=== PATIENT | male | born 1965 | race Two or more races ===

== ENCOUNTER 2018-01-12 14:12 | Emergency (ER) | payer OTHER ==
[~2018-01-12] VITALS: Ht 167.6 cm; Wt 77.1 kg
[2018-01-12 14:23] VITALS: BP_SYST 118
--- NOTE | 2018-01-12 14:27 | NUR ---
Ambulatory to bed 6
--- NOTE | 2018-01-12 14:29 | NUR ---
ER Dr. Zavaleta at bedside examining patient.
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
[2018-01-12 14:53] VITALS: BP_SYST 124
--- NOTE | 2018-01-12 14:55 | NUR ---
Patient given written and verbal discharge instructions and verbalizes understanding. ER MD discussed with patient the results and treatment provided. Patient in stable condition. ID arm band removed. Rx of flexeril given. Patient educated on pain management and to follow up with PMD. Pain Scale 3/10, patient stated that it is within tolerable limits. Opportunity for questions provided and answered. Medication side effect fact sheet provided.
== END 2018-01-12 14:53 | disposition home or self-care (01) ==
LOC: SED 14:12
DX: S16.1XXA Strain of muscle, fascia and tendon at neck level, initial encounter (principal); S86.911A Strain of unspecified muscle(s) and tendon(s) at lower leg level, right leg, initial encounter; R51 Headache; R03.0 Elevated blood-pressure reading, without diagnosis of hypertension; V89.2XXA Person injured in unspecified motor-vehicle accident, traffic, initial encounter; Y93.89 Activity, other specified; Y92.410 Unspecified street and highway as the place of occurrence of the external cause; Y99.8 Other external cause status
CPT/HCPCS: 99283